=== PATIENT | female | born 2000 | race Two or more races ===

== ENCOUNTER → 2021-01-30 | Outpatient (CLI) | payer OTHER ==
--- NOTE | 2021-01-30 11:09 | REP ---
INDICATION: RUQ PAIN. COMPARISON: None. TECHNIQUE/RADIOTRACER AND DOSE: After the intravenous administration of 6.6 mCi of technetium 99 M Choletec hepatobiliary imaging was performed with gallbladder ejection fraction calculation. FINDINGS: There is symmetric distribution of the radiotracer throughout the hepatocytes. The gallbladder is promptly visualized at 35 minutes. There is no delay in biliary to bowel transit. The gallbladder ejection fraction calculation is 74%. This is within the normal range. IMPRESSION: Within normal limits <Electronically signed by Mehrdad Sellers > 01/30/21 1103
== END ==
LOC: M RAD 07:43
PROVIDERS: ATTEND Preventive Medicine Undersea and Hyperbaric Medicine
DX: R10.11 Right upper quadrant pain (principal)
CPT/HCPCS: 78227; A9537

== ENCOUNTER → 2021-06-24 | Outpatient (CLI) | payer OTHER | LOC: M RAD 07:47 | PROVIDERS: ATTEND Preventive Medicine Undersea and Hyperbaric Medicine | DX: R11.2 Nausea with vomiting, unspecified (principal) | CPT/HCPCS: 78264; A9541 ==

== ENCOUNTER 2021-09-06 15:32 | Emergency (ER) | payer OTHER ==
[~2021-09-06] VITALS: Ht 152.4 cm; Wt 45.5 kg
[2021-09-06] MEDS ORDERED: PERCOCET 5MG/325MG TAB PO ONE (19:20)
[2021-09-06] MEDS ORDERED: PERC5TAB12 PO (19:44)
[2021-09-06 19:52] VITALS: BP 110/70
== END 2021-09-06 19:55 | disposition home or self-care (01) ==
LOC: M ED 15:32
DX: S80.01XA Contusion of right knee, initial encounter (principal); M89.252 Other disorders of bone development and growth, left femur; W19.XXXA Unspecified fall, initial encounter; M54.50 Low back pain, unspecified; F41.9 Anxiety disorder, unspecified; Z88.1 Allergy status to other antibiotic agents; Y92.009 Unspecified place in unspecified non-institutional (private) residence as the place of occurrence of the external cause; Y93.9 Activity, unspecified; Y99.9 Unspecified external cause status